=== PATIENT | female | born 2000 | race Caucasian/White ===

== ENCOUNTER 2018-12-17 08:21 | Emergency (ER) | payer BC ==
[2018-12-17] MEDS ORDERED: ONDANSETRON HCL IV 4 MG/2 ML VIAL IV ONE (08:36)
[2018-12-17] MEDS ORDERED: KETOROLAC 30 MG/ML VIAL IVP ONE (08:36)
[2018-12-17] MEDS ORDERED: 0.9 % SODIUM CHLORIDE 1,000 ML BAG IV ONE (08:36)
--- NOTE | 2018-12-17 08:36 | Emergency Department Record ---
History of Present Illness - General Chief Complaint: Dizziness Stated Complaint: DIZZY/ LOW BP Time Seen by Provider: 12/17/18 08:36 Source: Patient, RN notes reviewed - History of Present Illness Initial Comments: right upper quad abdominal pain and it started 2 days ago and with vomiting, nausea and no diarrhea and no URI symptoms slight cough and no dysuria and she was seen in [facility] ED yesterday with blood and urine test and not preg per patient and given morphine which helped the pain and her BP was low last night and this am 90/60 and she was dizzy and she came to ED for reevaluation. She said initially it felt like a pulled muscle and she doesn't recall any injuries. - Related Data Previous Rx's Medication Instructions Recorded Omeprazole 20 mg PO DAILY #30 12/17/18 Allergies Allergy/AdvReac Type Severity Reaction Status Date / Time No Known Drug Allergies Allergy Verified 12/17/18 08:26 Review of Systems Reviewed: No additional complaints except as noted below Constitutional: Reports: As per HPI. Denies: Chills, Fever, Malaise, Night sweats, Weakness, Weight change Eyes: Reports: As per HPI. Denies: Eye discharge, Eye pain, Photophobia, Vision change ENT: Reports: As per HPI. Denies: Congestion, Dental pain, Ear pain, Epistaxis, Hearing loss, Throat pain Respiratory: Reports: As per HPI. Denies: Cough, Dyspnea, Hemoptysis, Stridor, Wheezes Cardiovascular: Reports: As per HPI. Denies: Arrhythmia, Chest pain, Dyspnea on exertion, Edema, Murmurs, Orthopnea, Palpitations, Paroxysmal nocturnal dyspnea, Rheumatic Fever, Syncope Endocrine: Reports: As per HPI. Denies: Fatigue, Heat or cold intolerance, Polydipsia, Polyuria Gastrointestinal: Reports: As per HPI, Abdominal pain, Nausea. Denies: Constipation, Diarrhea, Hematemesis, Hematochezia, Melena, Vomiting Genitourinary: Reports: As per HPI. Denies: Abnormal menses, Discharge, Dyspareunia, Dysuria, Frequency, Hematuria, Incontinence, Retention, Urgency Musculoskeletal: Reports: As per HPI. Denies: Arthralgia, Back pain, Gout, Joint swelling, Myalgia, Neck pain Skin: Reports: As per HPI. Denies: Bruising, Change in color, Change in hair/nails, Lesions, Pruritus, Rash Neurological: Reports: As per HPI. Denies: Abnormal gait, Confusion, Headache, Numbness, Paresthesias, Seizure, Tingling, Tremors, Vertigo, Weakness Psychiatric: Reports: As per HPI. Denies: Anxiety, Auditory hallucinations, Depression, Homicidal thoughts, Suicidal thoughts, Visual hallucinations Hematological/Lymphatic: Reports: As per HPI. Denies: Anemia, Blood Clots, Easy bleeding, Easy bruising, Swollen glands Physical Exam - General General Appearance: Alert, Oriented x3, Cooperative, No acute distress - Head Head exam: Normal inspection - Eye Eye exam: Normal appearance, PERRL Pupils: Normal accommodation - ENT ENT exam: Normal exam, Mucous membranes moist, Normal external ear exam, Normal orophraynx, TM's normal bilaterally Ear exam: Normal external inspection. negative: External canal tenderness Nasal Exam: Normal inspection. negative: Discharge, Sinus tenderness Mouth exam: Normal external inspection, Tongue normal Teeth exam: Normal inspection. negative: Dental caries Throat exam: Normal inspection. negative: Tonsillar erythema, Tonsillar exudate - Neck Neck exam: Normal inspection, Full ROM. negative: Tenderness - Respiratory Respiratory exam: Normal lung sounds bilaterally. negative: Respiratory distress - Cardiovascular Cardiovascular Exam: Regular rate, Normal rhythm, Normal heart sounds - GI/Abdominal GI/Abdominal exam: Soft, Normal bowel sounds, Guarding (right upper quad), Tenderness (right upper quad pain and left lower quad discomfort on palpation but the severe pain is right upper quad) - Rectal Rectal exam: Deferred - exam: Deferred - Extremities Extremities exam: Normal inspection, Full ROM, Normal capillary refill. negative: Tenderness - Back Back exam: Reports: Normal inspection, Full ROM. Denies: Muscle spasm, Rash noted, Tenderness - Neurological Neurological exam: Alert, Normal gait, Oriented X3, Reflexes normal - Psychiatric Psychiatric exam: Normal affect, Normal mood - Skin Skin exam: Dry, Intact, Normal color, Warm Course - Reevaluation(s) Reevaluation #1: reviewed ED chart from [facility] and labs through [facility]. 12/17/18 09:22 Reevaluation #2: went into room and patient sleeping and when she wake up she said the pain was still there 12/17/18 10:14 Medical Decision Making - Data Complexity MDM Data: Labs Ordered and/or Reviewed, X-Ray Ordered and/or Reviewed (US of abd essentially negative) - Lab Data Result diagrams: 12/17/18 08:45 12/17/18 08:45 Disposition Clinical Impression: Abdominal pain Qualifiers: Abdominal location: right upper quadrant Qualified Code(s): R10.11 - Right upper quadrant pain Vomiting Qualifiers: Vomiting type: unspecified Vomiting Intractability: non-intractable Nausea presence: with nausea Qualified Code(s): R11.2 - Nausea with vomiting, unspecified Gastritis Qualifiers: Gastritis type: superficial Chronicity: acute Gastritis bleeding: without bleeding Qualified Code(s): K29.00 - Acute gastritis without bleeding Disposition: Home, Self-Care Condition: (1) Good Instructions: Abdominal Pain (ED), Gastritis (ED) Additional Instructions: follow up with family DR in 2 days return if worse tylenol for pain two 325 mg pills three times a day Prescriptions: Omeprazole 20 mg PO DAILY #30 cap.dr Forms: Patient Portal Access Time of Disposition: 13:08 Quality - Quality Measures Quality Measures: N/A - Blood Pressure Screening Does Patient Have Any of the Following: No Blood Pressure Classification: Pre-Hypertensive BP Reading Systolic Measurement: 124 Diastolic Measurement: 80 Screening for High Blood Pressure: < Pre-Hypertensive BP, F/U Documented > [G8950] Pre-Hypertensive Follow-up Interventions: Referral to alternative/primary care provider.
[2018-12-17] MEDS ORDERED: MAGNESIUM HYDROXIDE/AL HYDROX 30 ML, LIDOCAINE VISC 2% 15ML 15 ML PO ONE ×2 (08:48)
[2018-12-17 09:25] LABS: URINE APPEARANCE CLEAR; URINE BILIRUBIN NEGATIVE (NEGATIVE); URINE BLOOD NEGATIVE (NEGATIVE); URINE COLOR YELLOW; URINE GLUCOSE (UA) NEGATIVE (NEGATIVE); URINE KETONE NEGATIVE (NEGATIVE); URINE LEUKOCYTE ESTERASE NEGATIVE (NEGATIVE); URINE NITRITE NEGATIVE (NEGATIVE); URINE PROTEIN NEGATIVE (NEGATIVE); URINE UROBILINOGEN 0.2 E.U./dL (0.20 - 1.00)
[2018-12-17 09:28] LABS: HCG,QUALITATIVE URINE NEGATIVE (NEGATIVE)
[2018-12-17 09:36] LABS: AMPHETAMINE SCREEN URINE NOT DETECTED; BARBITURATE SCREEN URINE NOT DETECTED; BENZODIAZEPINE SCREEN URINE NOT DETECTED; COCAINE SCREEN URINE NOT DETECTED; METHADONE SCREEN URINE NOT DETECTED; METHAMPHETAMINE SCREEN NOT DETECTED; OPIATE SCREEN URINE DETECTED; OXYCODONE SCREEN URINE NOT DETECTED; PHENCYCLIDINE SCREEN URINE NOT DETECTED; PROPOXYPHENE SCREEN URINE NOT DETECTED; THC SCREEN URINE DETECTED; TRICYCLIC ANTIDEPRESSANT SCRN NOT DETECTED
[2018-12-17 09:55] LABS: ABSOLUTE NEUTROPHIL COUNT 2.86; BASO % 0.4 % (0-6); EOS % 3.5 % (0-6); GRAN % 56.1 % (47-80); HEMATOCRIT 41.3 % (35.0-47.0); HEMOGLOBIN 13.9 gm/dl (11.6-16.0); MEAN CELL VOLUME 91.8 fl (81-97); MEAN CORPUSCULAR HEMOGLOBIN 30.9 pg (27-33); MEAN CORPUSCULAR HGB CONC 33.7 g/dl (32-36); MEAN PLATELET VOLUME 11.5 fl (7.4-10.4); PLATELET COUNT 123 K/uL (130-400); RED CELL DISTRIBUTION WIDTH 13.6 % (11.5-14.5); WHITE BLOOD COUNT W/O DIFF 5.1 K/uL (4.2-12.2)
[2018-12-17 10:05] LABS: BLOOD UREA NITROGEN 7 mg/dL (6-20); CREATININE 0.3 mg/dL (0.5-0.9); EST GLOMERULAR FILTRATION RATE > 60 mL/min
[2018-12-17 10:06] LABS: LIPASE 21 U/L (13-60); TOTAL PROTEIN 6.6 g/dL (6.6-8.7)
[2018-12-17 10:08] LABS: GLUCOSE,RANDOM 87 mg/dL (74-109)
[2018-12-17 10:10] LABS: ALBUMIN 4.3 g/dL (4.0-5.0); ALT/SGPT 9 U/L (<33); AST/SGOT 17 U/L (10.0-35.0); BILIRUBIN,DIRECT 0.2 mg/dL (0-0.3)
[2018-12-17 10:11] LABS: ALKALINE PHOSPHATASE 59 U/L (35-104)
--- NOTE | 2018-12-17 13:51 | Emergency Department Record ---
History of Present Illness - General Chief Complaint: Dizziness Stated Complaint: DIZZY/ LOW BP Time Seen by Provider: 12/17/18 08:36 Source: Patient, RN notes reviewed Mode of Arrival: Wheelchair - History of Present Illness Onset/Timin -: Days(s) Timing: Constant Description: Lightheadedness History of Same: No History of Trauma: No Severity: Moderate Improves With: Nothing Worsens With: Nothing Associated Symptoms: Cough - Jacki Coma Scale Eye Response: (4) Open spontaneously Motor Response: (6) Obeys commands Verbal Response: (5) Oriented [place] Total: 15 - Related Data Previous Rx's Medication Instructions Recorded Dicyclomine HCl [Bentyl] 10 mg PO Q8H #30 cap 12/17/18 Omeprazole 20 mg PO DAILY #30 cap. 12/17/18 Allergies Allergy/AdvReac Type Severity Reaction Status Date / Time No Known Drug Allergies Allergy Verified 12/17/18 08:26 Travel Screening - Travel/Exposure Within Last 30 Days Have you traveled within the last 30 days?: No - Travel/Exposure Within Last Year Have you traveled outside the [place] in the last year?: Yes Location Detail:: [place] - Additonal Travel Details Have you been exposed to anyone with a communicable illness?: No - Travel Symptoms Symptom Screening: None Review of Systems Constitutional: Reports: As per HPI. Denies: Chills, Fever, Malaise, Night sweats, Weakness, Weight change Eyes: Reports: As per HPI. Denies: Eye discharge, Eye pain, Photophobia, Vision change ENT: Reports: As per HPI. Denies: Congestion, Dental pain, Ear pain, Epistaxis, Hearing loss, Throat pain Respiratory: Reports: As per HPI. Denies: Cough, Dyspnea, Hemoptysis, Stridor, Wheezes Cardiovascular: Reports: As per HPI. Denies: Arrhythmia, Chest pain, Dyspnea on exertion, Edema, Murmurs, Orthopnea, Palpitations, Paroxysmal nocturnal dyspnea, Rheumatic Fever, Syncope Endocrine: Reports: As per HPI. Denies: Fatigue, Heat or cold intolerance, Polydipsia, Polyuria Gastrointestinal: Reports: As per HPI, Abdominal pain, Nausea. Denies: Constipation, Diarrhea, Hematemesis, Hematochezia, Melena, Vomiting Genitourinary: Reports: As per HPI. Denies: Abnormal menses, Discharge, Dyspareunia, Dysuria, Frequency, Hematuria, Incontinence, Retention, Urgency Musculoskeletal: Reports: As per HPI. Denies: Arthralgia, Back pain, Gout, Joint swelling, Myalgia, Neck pain Skin: Reports: As per HPI. Denies: Bruising, Change in color, Change in hair/nails, Lesions, Pruritus, Rash Neurological: Reports: As per HPI. Denies: Abnormal gait, Confusion, Headache, Numbness, Paresthesias, Seizure, Tingling, Tremors, Vertigo, Weakness Psychiatric: Reports: As per HPI. Denies: Anxiety, Auditory hallucinations, Depression, Homicidal thoughts, Suicidal thoughts, Visual hallucinations Hematological/Lymphatic: Reports: As per HPI. Denies: Anemia, Blood Clots, Easy bleeding, Easy bruising, Swollen glands Past Medical History - SOCIAL HISTORY Smoking Status: Never smoker Alcohol Use: Occasional Drug Use: Heavy Drug Use Detail:: Marijuana - RESPIRATORY Hx Respiratory Disorders: No - CARDIOVASCULAR Hx Cardio Disorders: No - NEURO Hx Neuro Disorders: No - GI Hx GI Disorders: No - Hx Genitourinary Disorders: No - ENDOCRINE Hx Endocrine Disorders: No - MUSCULOSKELETAL Hx Musculoskeletal Disorders: Yes Comment:: knee - PSYCH Hx Psych Problems: No - HEMATOLOGY/ONCOLOGY Hx Hematology/Oncology Disorders: No Family Medical History Any Significant Family History?: Yes Hx Alcohol Use: Father Hx Cancer: Mother, Grandparents Hx Heart Disease: Grandparents Hx HTN: Mother Hx Kidney Disease: Mother Hx Stroke: Grandparents Course Vital Signs 12/17/18 12/17/18 12/17/18 08:27 09:45 11:32 Temperature 98.2 F Pulse Rate 90 Pulse Rate [ 86 63 Right] Respiratory 20 20 20 Rate Blood Pressure 124/80 Blood Pressure 136/74 128/66 [Left Arm] Pulse Ox 98 100 100 12/17/18 12:45 Temperature Pulse Rate Pulse Rate [ 87 Right] Respiratory 20 Rate Blood Pressure Blood Pressure 122/57 [Left Arm] Pulse Ox 99 Medical Decision Making - Lab Data Result diagrams: 12/17/18 08:45 12/17/18 08:45 Lab Results 12/17/18 12/17/18 12/17/18 Range/Units 08:45 08:45 09:00 WBC 5.1 (4.2-12.2) K/uL RBC 4.50 (3.80-5.40) M/uL Hgb 13.9 (11.6-16.0) gm/dl Hct 41.3 (35.0-47.0) % MCV 91.8 (81-97) fl MCH 30.9 (27-33) pg MCHC 33.7 (32-36) g/dl RDW 13.6 (11.5-14.5) % Plt Count 123 L (130-400) K/uL MPV 11.5 H (7.4-10.4) fl Gran % 56.1 (47-80) % Lymphocytes % 31.0 (16-45) % Monocytes % 9.0 (0-9) % Eosinophils % 3.5 (0-6) % Basophils % 0.4 (0-6) % Absolute Neutrophils 2.86 Sodium 142 (136-145) mmol/L Potassium 3.9 (3.4-4.5) mmol/L Chloride 109 H (98-107) mmol/L Carbon Dioxide 19.0 L (22-29) mmol/L Anion Gap 14.0 (7-16) BUN 7 (6-20) mg/dL Creatinine 0.3 L (0.5-0.9) mg/dL Estimated GFR > 60 mL/min Random Glucose 87 (74-109) mg/dL Calcium 8.7 (8.6-10.0) mg/dL Total Bilirubin 1.20 H (0.2-1.0) mg/dL Direct Bilirubin 0.2 (0-0.3) mg/dL AST 17 (10.0-35.0) U/L ALT 9 (<33) U/L Alkaline Phosphatase 59 (35-104) U/L Total Protein 6.6 (6.6-8.7) g/dL Albumin 4.3 (4.0-5.0) g/dL Lipase 21 (13-60) U/L Urine Color Urine Appearance Urine pH (5.0-8.0) Ur Specific [place] (1.002-1.030) Urine Protein (NEGATIVE) Urine Glucose (UA) (NEGATIVE) Urine Ketones (NEGATIVE) Urine Blood (NEGATIVE) Urine Nitrite (NEGATIVE) Urine Bilirubin (NEGATIVE) Urine Urobilinogen (0.20 - 1.00) E.U./dL Ur Leukocyte Esterase (NEGATIVE) Urine HCG, Qual (NEGATIVE) Urine Opiates Screen Detected Ur Oxycodone Screen Not detected Urine Methadone Screen Not detected Ur Propoxyphene Screen Not detected Ur Barbituates Screen Not detected Ur Tricyclics Screen Not detected Ur Phencyclidine Scrn Not detected Ur Amphetamine Screen Not detected U Methamphetamines Scrn Not detected U Benzodiazepines Scrn Not detected Urine Cocaine Screen Not detected Urine Cannabis Screen Detected 12/17/18 Range/Units 09:20 WBC (4.2-12.2) K/uL RBC (3.80-5.40) M/uL Hgb (11.6-16.0) gm/dl Hct (35.0-47.0) % MCV (81-97) fl MCH (27-33) pg MCHC (32-36) g/dl RDW (11.5-14.5) % Plt Count (130-400) K/uL MPV (7.4-10.4) fl Gran % (47-80) % Lymphocytes % (16-45) % Monocytes % (0-9) % Eosinophils % (0-6) % Basophils % (0-6) % Absolute Neutrophils Sodium (136-145) mmol/L Potassium (3.4-4.5) mmol/L Chloride (98-107) mmol/L Carbon Dioxide (22-29) mmol/L Anion Gap (7-16) BUN (6-20) mg/dL Creatinine (0.5-0.9) mg/dL Estimated GFR mL/min Random Glucose (74-109) mg/dL Calcium (8.6-10.0) mg/dL Total Bilirubin (0.2-1.0) mg/dL Direct Bilirubin (0-0.3) mg/dL AST (10.0-35.0) U/L ALT (<33) U/L Alkaline Phosphatase (35-104) U/L Total Protein (6.6-8.7) g/dL Albumin (4.0-5.0) g/dL Lipase (13-60) U/L Urine Color Yellow Urine Appearance Clear Urine pH 6.0 (5.0-8.0) Ur Specific [place] 1.020 (1.002-1.030) Urine Protein Negative (NEGATIVE) Urine Glucose (UA) Negative (NEGATIVE) Urine Ketones Negative (NEGATIVE) Urine Blood Negative (NEGATIVE) Urine Nitrite Negative (NEGATIVE) Urine Bilirubin Negative (NEGATIVE) Urine Urobilinogen 0.2 (0.20 - 1.00) E.U./dL Ur Leukocyte Esterase Negative (NEGATIVE) Urine HCG, Qual Negative (NEGATIVE) Urine Opiates Screen Ur Oxycodone Screen Urine Methadone Screen Ur Propoxyphene Screen Ur Barbituates Screen Ur Tricyclics Screen Ur Phencyclidine Scrn Ur Amphetamine Screen U Methamphetamines Scrn U Benzodiazepines Scrn Urine Cocaine Screen Urine Cannabis Screen Disposition Clinical Impression: Abdominal pain Qualifiers: Abdominal location: right upper quadrant Qualified Code(s): R10.11 - Right upper quadrant pain Vomiting Qualifiers: Vomiting type: unspecified Vomiting Intractability: non-intractable Nausea presence: with nausea Qualified Code(s): R11.2 - Nausea with vomiting, unspecified Gastritis Qualifiers: Gastritis type: superficial Chronicity: acute Gastritis bleeding: without bleeding Qualified Code(s): K29.00 - Acute gastritis without bleeding Disposition: Home, Self-Care Condition: (1) Good Instructions: Gastritis (ED), Abdominal Pain (ED) Additional Instructions: follow up with family DR in 2 days return if worse tylenol for pain two 325 mg pills three times a day Prescriptions: Dicyclomine HCl [Bentyl] 10 mg PO Q8H #30 cap Omeprazole 20 mg PO DAILY #30 cap.dr Forms: Patient Portal Access Time of Disposition: 13:50 Quality - Quality Measures Quality Measures: N/A - Blood Pressure Screening Does Patient Have Any of the Following: No Blood Pressure Classification: Pre-Hypertensive BP Reading Systolic Measurement: 124 Diastolic Measurement: 80 Screening for High Blood Pressure: < Pre-Hypertensive BP, F/U Documented > [G8950] Pre-Hypertensive Follow-up Interventions: Referral to alternative/primary care provider.
[2018-12-17] MEDS ORDERED: LORAZEPAM 0.5 MG TABLET PO ONE (14:31)
[2018-12-17] MEDS ORDERED: PANTOPRAZOLE SODIUM 40 MG TABLET PO ONE (14:31)
[2018-12-17] MEDS ORDERED: DICYCLOMINE HCL 10 MG CAPSULE PO ONE (14:31)
--- NOTE | 2018-12-17 14:53 | Emergency Department Record ---
History of Present Illness - General Chief Complaint: Dizziness Stated Complaint: DIZZY/ LOW BP Time Seen by Provider: 12/17/18 08:36 Source: Patient, RN notes reviewed Mode of Arrival: Wheelchair - History of Present Illness Onset/Timin -: Days(s) Timing: Constant Description: Lightheadedness History of Same: No History of Trauma: No Severity: Moderate Improves With: Nothing Worsens With: Nothing Associated Symptoms: Cough - Jacki Coma Scale Eye Response: (4) Open spontaneously Motor Response: (6) Obeys commands Verbal Response: (5) Oriented [place] Total: 15 - Related Data Previous Rx's Medication Instructions Recorded Dicyclomine HCl [Bentyl] 10 mg PO Q8H #30 cap 12/17/18 Omeprazole 20 mg PO DAILY #30 cap. 12/17/18 Allergies Allergy/AdvReac Type Severity Reaction Status Date / Time No Known Drug Allergies Allergy Verified 12/17/18 08:26 Travel Screening - Travel/Exposure Within Last 30 Days Have you traveled within the last 30 days?: No - Travel/Exposure Within Last Year Have you traveled outside the [place] in the last year?: Yes Location Detail:: [place] - Additonal Travel Details Have you been exposed to anyone with a communicable illness?: No - Travel Symptoms Symptom Screening: None Review of Systems Constitutional: Reports: As per HPI. Denies: Chills, Fever, Malaise, Night sweats, Weakness, Weight change Eyes: Reports: As per HPI. Denies: Eye discharge, Eye pain, Photophobia, Vision change ENT: Reports: As per HPI. Denies: Congestion, Dental pain, Ear pain, Epistaxis, Hearing loss, Throat pain Respiratory: Reports: As per HPI. Denies: Cough, Dyspnea, Hemoptysis, Stridor, Wheezes Cardiovascular: Reports: As per HPI. Denies: Arrhythmia, Chest pain, Dyspnea on exertion, Edema, Murmurs, Orthopnea, Palpitations, Paroxysmal nocturnal dyspnea, Rheumatic Fever, Syncope Endocrine: Reports: As per HPI. Denies: Fatigue, Heat or cold intolerance, Polydipsia, Polyuria Gastrointestinal: Reports: As per HPI, Abdominal pain, Nausea. Denies: Constipation, Diarrhea, Hematemesis, Hematochezia, Melena, Vomiting Genitourinary: Reports: As per HPI. Denies: Abnormal menses, Discharge, Dyspareunia, Dysuria, Frequency, Hematuria, Incontinence, Retention, Urgency Musculoskeletal: Reports: As per HPI. Denies: Arthralgia, Back pain, Gout, Joint swelling, Myalgia, Neck pain Skin: Reports: As per HPI. Denies: Bruising, Change in color, Change in hair/nails, Lesions, Pruritus, Rash Neurological: Reports: As per HPI. Denies: Abnormal gait, Confusion, Headache, Numbness, Paresthesias, Seizure, Tingling, Tremors, Vertigo, Weakness Psychiatric: Reports: As per HPI. Denies: Anxiety, Auditory hallucinations, Depression, Homicidal thoughts, Suicidal thoughts, Visual hallucinations Hematological/Lymphatic: Reports: As per HPI. Denies: Anemia, Blood Clots, Easy bleeding, Easy bruising, Swollen glands Past Medical History - SOCIAL HISTORY Smoking Status: Never smoker Alcohol Use: Occasional Drug Use: Heavy Drug Use Detail:: Marijuana - RESPIRATORY Hx Respiratory Disorders: No - CARDIOVASCULAR Hx Cardio Disorders: No - NEURO Hx Neuro Disorders: No - GI Hx GI Disorders: No - Hx Genitourinary Disorders: No - ENDOCRINE Hx Endocrine Disorders: No - MUSCULOSKELETAL Hx Musculoskeletal Disorders: Yes Comment:: knee - PSYCH Hx Psych Problems: No - HEMATOLOGY/ONCOLOGY Hx Hematology/Oncology Disorders: No Family Medical History Any Significant Family History?: Yes Hx Alcohol Use: Father Hx Cancer: Mother, Grandparents Hx Heart Disease: Grandparents Hx HTN: Mother Hx Kidney Disease: Mother Hx Stroke: Grandparents Course Vital Signs 12/17/18 12/17/18 12/17/18 08:27 09:45 11:32 Temperature 98.2 F Pulse Rate 90 Pulse Rate [ 86 63 Right] Respiratory 20 20 20 Rate Blood Pressure 124/80 Blood Pressure 136/74 128/66 [Left Arm] Pulse Ox 98 100 100 12/17/18 12/17/18 12:45 13:49 Temperature Pulse Rate Pulse Rate [ 87 92 H Right] Respiratory 20 21 Rate Blood Pressure Blood Pressure 122/57 126/74 [Left Arm] Pulse Ox 99 100 - Reevaluation(s) Reevaluation #1: listening to the dictaphone she has sludge in her GB and informed the patient and mom about this finding and will set up a consult with Dr Hameed 12/17/18 14:47 Medical Decision Making - Data Complexity MDM Data: X-Ray Ordered and/or Reviewed (sludge in the Gall bladder) - Lab Data Result diagrams: 12/17/18 08:45 12/17/18 08:45 Lab Results 12/17/18 12/17/18 12/17/18 Range/Units 08:45 08:45 09:00 WBC 5.1 (4.2-12.2) K/uL RBC 4.50 (3.80-5.40) M/uL Hgb 13.9 (11.6-16.0) gm/dl Hct 41.3 (35.0-47.0) % MCV 91.8 (81-97) fl MCH 30.9 (27-33) pg MCHC 33.7 (32-36) g/dl RDW 13.6 (11.5-14.5) % Plt Count 123 L (130-400) K/uL MPV 11.5 H (7.4-10.4) fl Gran % 56.1 (47-80) % Lymphocytes % 31.0 (16-45) % Monocytes % 9.0 (0-9) % Eosinophils % 3.5 (0-6) % Basophils % 0.4 (0-6) % Absolute Neutrophils 2.86 Sodium 142 (136-145) mmol/L Potassium 3.9 (3.4-4.5) mmol/L Chloride 109 H (98-107) mmol/L Carbon Dioxide 19.0 L (22-29) mmol/L Anion Gap 14.0 (7-16) BUN 7 (6-20) mg/dL Creatinine 0.3 L (0.5-0.9) mg/dL Estimated GFR > 60 mL/min Random Glucose 87 (74-109) mg/dL Calcium 8.7 (8.6-10.0) mg/dL Total Bilirubin 1.20 H (0.2-1.0) mg/dL Direct Bilirubin 0.2 (0-0.3) mg/dL AST 17 (10.0-35.0) U/L ALT 9 (<33) U/L Alkaline Phosphatase 59 (35-104) U/L Total Protein 6.6 (6.6-8.7) g/dL Albumin 4.3 (4.0-5.0) g/dL Lipase 21 (13-60) U/L Urine Color Urine Appearance Urine pH (5.0-8.0) Ur Specific [place] (1.002-1.030) Urine Protein (NEGATIVE) Urine Glucose (UA) (NEGATIVE) Urine Ketones (NEGATIVE) Urine Blood (NEGATIVE) Urine Nitrite (NEGATIVE) Urine Bilirubin (NEGATIVE) Urine Urobilinogen (0.20 - 1.00) E.U./dL Ur Leukocyte Esterase (NEGATIVE) Urine HCG, Qual (NEGATIVE) Urine Opiates Screen Detected Ur Oxycodone Screen Not detected Urine Methadone Screen Not detected Ur Propoxyphene Screen Not detected Ur Barbituates Screen Not detected Ur Tricyclics Screen Not detected Ur Phencyclidine Scrn Not detected Ur Amphetamine Screen Not detected U Methamphetamines Scrn Not detected U Benzodiazepines Scrn Not detected Urine Cocaine Screen Not detected Urine Cannabis Screen Detected 12/17/18 Range/Units 09:20 WBC (4.2-12.2) K/uL RBC (3.80-5.40) M/uL Hgb (11.6-16.0) gm/dl Hct (35.0-47.0) % MCV (81-97) fl MCH (27-33) pg MCHC (32-36) g/dl RDW (11.5-14.5) % Plt Count (130-400) K/uL MPV (7.4-10.4) fl Gran % (47-80) % Lymphocytes % (16-45) % Monocytes % (0-9) % Eosinophils % (0-6) % Basophils % (0-6) % Absolute Neutrophils Sodium (136-145) mmol/L Potassium (3.4-4.5) mmol/L Chloride (98-107) mmol/L Carbon Dioxide (22-29) mmol/L Anion Gap (7-16) BUN (6-20) mg/dL Creatinine (0.5-0.9) mg/dL Estimated GFR mL/min Random Glucose (74-109) mg/dL Calcium (8.6-10.0) mg/dL Total Bilirubin (0.2-1.0) mg/dL Direct Bilirubin (0-0.3) mg/dL AST (10.0-35.0) U/L ALT (<33) U/L Alkaline Phosphatase (35-104) U/L Total Protein (6.6-8.7) g/dL Albumin (4.0-5.0) g/dL Lipase (13-60) U/L Urine Color Yellow Urine Appearance Clear Urine pH 6.0 (5.0-8.0) Ur Specific [place] 1.020 (1.002-1.030) Urine Protein Negative (NEGATIVE) Urine Glucose (UA) Negative (NEGATIVE) Urine Ketones Negative (NEGATIVE) Urine Blood Negative (NEGATIVE) Urine Nitrite Negative (NEGATIVE) Urine Bilirubin Negative (NEGATIVE) Urine Urobilinogen 0.2 (0.20 - 1.00) E.U./dL Ur Leukocyte Esterase Negative (NEGATIVE) Urine HCG, Qual Negative (NEGATIVE) Urine Opiates Screen Ur Oxycodone Screen Urine Methadone Screen Ur Propoxyphene Screen Ur Barbituates Screen Ur Tricyclics Screen Ur Phencyclidine Scrn Ur Amphetamine Screen U Methamphetamines Scrn U Benzodiazepines Scrn Urine Cocaine Screen Urine Cannabis Screen Disposition Clinical Impression: Gall bladder disease Abdominal pain Qualifiers: Abdominal location: right upper quadrant Qualified Code(s): R10.11 - Right upper quadrant pain Vomiting Qualifiers: Vomiting type: unspecified Vomiting Intractability: non-intractable Nausea presence: with nausea Qualified Code(s): R11.2 - Nausea with vomiting, unspecified Gastritis Qualifiers: Gastritis type: superficial Chronicity: acute Gastritis bleeding: without bleeding Qualified Code(s): K29.00 - Acute gastritis without bleeding Disposition: Home, Self-Care Condition: (1) Good Instructions: Gastritis (ED), Abdominal Pain (ED), Biliary Colic (ED) Additional Instructions: follow up with family DR in 2 days return if worse tylenol for pain two 325 mg pills three times a day Prescriptions: Dicyclomine HCl [Bentyl] 10 mg PO Q8H #30 cap Omeprazole 20 mg PO DAILY #30 cap.dr Forms: Patient Portal Access Time of Disposition: 14:51 Quality - Quality Measures Quality Measures: N/A - Blood Pressure Screening Does Patient Have Any of the Following: No Blood Pressure Classification: Pre-Hypertensive BP Reading Systolic Measurement: 124 Diastolic Measurement: 80 Screening for High Blood Pressure: < Pre-Hypertensive BP, F/U Documented > [G8 950] Pre-Hypertensive Follow-up Interventions: Referral to alternative/primary care provider.
--- NOTE | 2018-12-18 10:19 | ULTRASOUND REPORT ---
EXAM: ULTRASOUND OF THE ABDOMEN, COMPLETE HISTORY: NAUSEA, VOMITING, RIGHT UPPER QUADRANT PAIN. TECHNIQUE: Routine scanning of the abdomen was performed. FINDINGS: The liver is normal in size and echogenicity. It measures 14.9 cm in length. No discrete mass. Gallbladder without shadowing stones. No wall thickening or pericholecystic fluid. There does appear to be mild gallbladder sludge. No biliary ductal dilatation. The common duct measures 2 mm in caliber. The visualized portions of the pancreas were normal. The The spleen is normal in size and echogenicity measuring 10.9 cm in length. The right kidney measures 10.5 cm and the left kidney measures 10.1 cm in length. No hydronephrosis or shadowing stones. No suspicious renal mass. The visualized aorta and IVC are normal. IMPRESSION: MILD GALLBLADDER SLUDGE. OTHERWISE, UNREMARKABLE EXAMINATION. JOB NUMBER: [id number] MTDD
== END 2018-12-17 14:42 | disposition home or self-care (01) ==
LOC: ER 08:21
DX: R10.11 Right upper quadrant pain (principal); R11.2 Nausea with vomiting, unspecified; K29.00 Acute gastritis without bleeding; K82.8 Other specified diseases of gallbladder
CPT/HCPCS: 99284 ×2; 96374; 96375; 83690; 85025; 80076; 80048; 81003; 81025; 80305; 76700; J1885; J2405; J7030

== ENCOUNTER 2019-01-05 08:19 | Day surgery (SDC) | payer BC ==
[~2019-01-05 08:19] MED LIST: ACETAMINOPHEN 1,000 MG/100 ML BTL IVPB ONE; FAMOTIDINE 20MG TABLET PO ONE; MECLIZINE 25 MG TABLET PO ONE; METOCLOPRAMIDE 10 MG TABLET PO ONE
[2019-01-05] MEDS ORDERED: ONDANSETRON HCL IV 4 MG/2 ML VIAL IVP ONE ×2 (08:20→11:37)
[2019-01-05] MEDS ORDERED: 0.9 % SODIUM CHLORIDE 10 ML VIAL IVP ONE (08:20)
[2019-01-05] MEDS ORDERED: PROPOFOL 10 MG/ML VIAL IV ONE (08:20)
[2019-01-05] MEDS ORDERED: KETOROLAC 30 MG/ML VIAL IVP ONE (08:20)
[2019-01-05] MEDS ORDERED: DEXAMETHASONE 4 MG/ML 1ML VIAL IVP ONE (08:20)
[2019-01-05] MEDS ORDERED: LIDOCAINE 2% MDV (20MG/ML) 20ML VIAL IV ONE (08:20)
[2019-01-05] MEDS ORDERED: KETAMINE HCL 100MG/1ML VIAL INJ ONE (08:20)
[2019-01-05] MEDS ORDERED: SUGAMMADEX SODIUM 200 MG/2 ML VIAL IV ONE (08:20)
[2019-01-05] MEDS ORDERED: RINGERS SOLUTION,LACTATED 1,000 ML IV ONE ×2 (08:56→11:13)
[2019-01-05] MEDS ORDERED: BUPIVACAINE 0.25% W/EPI MPF 30ML VIAL SQ ONE ×2 (09:48)
[2019-01-05] MEDS ORDERED: PROMETHAZINE HCL 12.5 MG in 0.9 % SODIUM CHLORIDE 100ML 100 ML IVPB ONE (10:44)
[2019-01-05] MEDS ORDERED: FENTANYL PF 100MCG/2ML VIAL IVP ONE ×2 (10:44→10:54)
[2019-01-05] MEDS ORDERED: HYDROCODONE/APAP 5/325MG TABLET PO ONE (12:18)
--- NOTE | 2019-01-06 13:10 | Operative Note ---
DATE OF SURGERY: 01/05/2019 SURGEON: Luis Hameed DO PREOPERATIVE DIAGNOSIS: Symptomatic biliary dyskinesia. POSTOPERATIVE DIAGNOSIS: Symptomatic biliary dyskinesia. OPERATION: Laparoscopic cholecystectomy. INDICATION: The patient is a 18-year-old female who is having ongoing right subcostal postprandial pain. We did discuss cholecystectomy versus medical management. She desired surgical intervention. Risks include but are not limited to bleeding, infection, ductal injury, possible conversion to open, postoperative bile leak, nonresolution of her symptoms. She understood this fully. PROCEDURE: Thereafter, consent was signed and questions answered. She was taken to the operating room and placed in a supine position. General anesthesia was administered per the department of anesthesia. The patient's abdomen was prepped and draped in the usual sterile fashion. The infraumbilical region was anesthetized with a total of 2 mL of 0.25% Sensorcaine with epinephrine. A 2 cm infraumbilical incision was made. This was carried down to the anterior rectus fascia. This was incised. Esther clamps were placed on the fascial edges and brought up into the wound. Stay sutures of 0 Vicryl were placed. Posterior rectus sheath was identified and incised. The peritoneal cavity was entered bluntly. At this time, a 10 mm blunt Jovani port was placed. Adequate pneumoperitoneum was established. Under direct visualization, additional 5 mm epigastric and two 5 mm right subcostal ports were placed. The patient was rotated into reverse Trendelenburg with rotation to left. The gallbladder was identified. It was retracted in a cephalad and lateral direction opening up the angle of [place]. The patient had partly intrahepatic gallbladder. Therefore, I did switch to a dome-down technique where the gallbladder was taken off in an antegrade fashion. This was taken down toward Pee pouch. We did continue our dissection from below meeting up with our anterior dissection. Everything was freed up. We had an excellent critical view of safety. The cystic duct and cystic artery were clearly identified. There was no aberrant anatomy, no posterior ductal structures. Each one was doubly clipped and cut in a standard fashion. Gallbladder was then taken out through the umbilical port. Right upper quadrant was rechecked and found to be hemostatic. No bleeding. No bile leaking. No bowel injury noted. The patient was leveled out. The pneumoperitoneum was released. All ports were removed. The fascia was closed with 0 Vicryl in a imwely-ob-[id number] fashion. The skin at all ports was closed with 4-0 Vicryl. The patient was taken to the recovery room in stable condition. KJ
== END 2019-01-05 12:40 | disposition home or self-care (01) ==
LOC: SUR 08:19
PROVIDERS: ATTEND Surgery
DX: K82.8 Other specified diseases of gallbladder (principal)
CPT/HCPCS: 81025; J1885; J2405; J2550; J3490; J7120

== ENCOUNTER 2019-07-30 15:35 | Emergency (ER) | payer BC ==
[2019-07-30] MEDS ORDERED: 0.9 % SODIUM CHLORIDE 1,000 ML BAG IV ONE ×2 (15:59→17:45)
[2019-07-30] MEDS ORDERED: ACETAMINOPHEN 1,000 MG/100 ML BTL IVPB ONE (16:00)
--- NOTE | 2019-07-30 16:01 | Emergency Department Record ---
History of Present Illness - General Chief Complaint: Syncope Stated Complaint: SINCOPY Time Seen by Provider: 07/30/19 15:51 Source: Patient Mode of Arrival: Ambulatory Limitations: No limitations - History of Present Illness Initial Comments: The patient is here due to possibly passing out at work. She was at work today and has been eating and drinking normally but was not having a good day. She then took one of her mom's Ativan pills and then shortly after felt weak and lightheaded and nauseated. She then went to the bathroom and after about 20-30 minutes her boss went to see how she was doing and she was found on the floor. The patient was awake at that time but sweaty. She states she was in the bathroom and was lightheaded and nauseated and felt warm all over and then passed out possibly. The patient did hit the L side of her head on the floor. She denied any CP, SOB, QUIROZ, or palpitations prior to possibly passing out. She has had similar episodes like this in the past when she was dehydrated. There is no family hx of arrhythmia's or sudden . MD Complaint: [place] faint, Loss of consciousness Onset/Timin -: Hour(s) Prodromal Symptoms: Lightheaded, Other Injuries Sustained Associated with Event: None Current Symptoms: None Context: At rest Treatments Prior to Arrival: None - Jacki Coma Scale Eye Response: (4) Open spontaneously Motor Response: (6) Obeys commands Verbal Response: (5) Oriented Jacki Total: 15 - Related Data Home Medications Medication Instructions Recorded Confirmed Last Taken Trazodone HCl 50 mg PO QHS 07/30/19 07/30/19 Unknown Allergies Allergy/AdvReac Type Severity Reaction Status Date / Time morphine AdvReac HYPOTENSION Verified 12/30/18 10:54 Travel/Exposure Screening - Travel/Exposure Within Last 30 Days Have you traveled within the last 30 days?: No - Travel/Exposure Within Last Year Have you traveled outside the [place] in the last year?: No - Additonal Travel/Exposure Details Have you been exposed to anyone with a communicable illness?: No - Travel Symptoms Symptom Screening: None Review of Systems Constitutional: Denies: Chills, Fever Eyes: Denies: Eye discharge ENT: Denies: Congestion Respiratory: Denies: Cough, Dyspnea Cardiovascular: Denies: Chest pain Endocrine: Denies: Fatigue Gastrointestinal: Denies: Nausea Genitourinary: Denies: Dysuria Musculoskeletal: Denies: Arthralgia Neurological: Reports: Headache. Denies: Abnormal gait, Confusion Past Medical History - SOCIAL HISTORY Smoking Status: Never smoker - RESPIRATORY Hx Respiratory Disorders: No - CARDIOVASCULAR Hx Cardio Disorders: No - NEURO Hx Neuro Disorders: No - GI Hx GI Disorders: No - Hx Genitourinary Disorders: No - ENDOCRINE Hx Endocrine Disorders: No - MUSCULOSKELETAL Hx Musculoskeletal Disorders: Yes Comment:: knee - PSYCH Hx Psych Problems: No - HEMATOLOGY/ONCOLOGY Hx Hematology/Oncology Disorders: No Family Medical History Any Significant Family History?: No Hx Alcohol Use: Father Hx Cancer: Mother, Grandparents Hx Heart Disease: Grandparents Hx HTN: Mother Hx Kidney Disease: Mother Hx Stroke: Grandparents Physical Exam - General General Appearance: Alert, Oriented x3, Cooperative, No acute distress - Head Head exam: Atraumatic, Normocephalic, Normal inspection (There are no signs of any trauma or swelling but there is tenderness to palpation over the L parietal skull area. ) - Eye Eye exam: Normal appearance, PERRL, EOMI. negative: Conjunctival injection - ENT Throat exam: Normal inspection. negative: Tonsillar erythema, Tonsillar exudate - Neck Neck exam: Normal inspection, Full ROM. negative: Lymphadenopathy, Tenderness (There is no Cspine tenderness.) - Respiratory Respiratory exam: Normal lung sounds bilaterally. negative: Respiratory distress - Cardiovascular Cardiovascular Exam: Regular rate, Normal rhythm, Normal heart sounds. negative: Diastolic murmur, Systolic murmur - GI/Abdominal GI/Abdominal exam: Soft, Normal bowel sounds. negative: Tenderness - Extremities Extremities exam: Normal inspection, Full ROM, Normal capillary refill. negative: Tenderness - Neurological Neurological exam: Alert, Normal gait. negative: Abnormal gait, Motor sensory deficit - Psychiatric Psychiatric exam: negative: Anxious Course Vital Signs 07/30/19 15:40 Temperature 98.8 F Pulse Rate 102 H Respiratory 16 Rate Blood Pressure 142/90 Pulse Ox 98 - Reevaluation(s) Reevaluation #1: The patient is doing very well at this time. She is up walking with no dizziness or lightheadness. I did discuss the normal lab tests, CT, and EKG with the patient and the need to drink plenty of fluids. 07/30/19 17:11 Reevaluation #2: The patient is doing better at this time but having mild neck pain with ROM. She is now up walking with no dizziness or lightheadedness or ataxia. She still has a mild QUIROZ but there is no confusion, vomiting, or visual changes. I did discuss the need for a cervical xray due to the patient having mild persistent pain but no tenderness but she is now refusing. I did discuss the risks of refusing which include an undiagnosed cervical fracture, which can lead to persistent pain and paralysis but she continues to refuse. I do feel the patient has proper decision making capacity and is competent to refuse. 07/30/19 18:08 Medical Decision Making - Data Complexity MDM Data: Labs Ordered and/or Reviewed, X-Ray Ordered and/or Reviewed, EKG Ordered and/or Reviewed - Lab Data Result diagrams: 07/30/19 16:05 07/30/19 16:05 - EKG Data -: EKG Interpreted by Me EKG: No Acute Changes (NSR at 98, RsR" pattern. Neg for ischemia or long QT syndrome.) - Radiology Data Radiology results: Report reviewed (Head CT: Neg for any acute changes.) Disposition Disposition: Discharge Clinical Impression: Concussion Qualifiers: Encounter type: initial encounter Loss of consciousness presence/duration: without LOC Qualified Code(s): S06.0X0A - Concussion without loss of consciousness, initial encounter Disposition: Home, Self-Care Condition: (2) Stable Instructions: Syncope (ED) Additional Instructions: Please drink plenty of fluids and please use Tylenol and Motrin for pain. Please see your doctor on Saturday if not better and return to the ER for any worsening symptoms, pain, fever, vomiting or confusion. Forms: Patient Portal Access Time of Disposition: 18:11 Quality - Quality Measures Quality Measures: Blunt Head Trauma (>2yr) - Blunt Head Trauma - Adult Quality Measure: Measure #415: Utilization of CT for Minor Blunt Head Trauma ICD10 Codes Entered: Yes View Details: Yes Was CT ordered: Yes Does Patient Have Any of the Following: Multisystem Trauma [place] Score: Please complete Jacki Coma Scale above Utilization of CT for Minor Blunt Head Trauma: Patient Excluded [G9531] - Blood Pressure Screening View Details: Yes Does Patient Have Any of the Following: No Blood Pressure Classification: Pre-Hypertensive BP Reading Systolic Measurement: 121 Diastolic Measurement: 70 Screening for High Blood Pressure: < Pre-Hypertensive BP, F/U Documented > [G8950] Pre-Hypertensive Follow-up Interventions: Referral to alternative/primary care provider.
[2019-07-30 16:12] LABS: BASO % 0.2 % (0-6); GRAN % 65.1 % (47-80); HEMATOCRIT 44.4 % (35.0-47.0); HEMOGLOBIN 14.7 gm/dl (11.6-16.0); LYMPH % 23.7 % (16-45); MEAN CELL VOLUME 91.4 fl (81-97); MEAN CORPUSCULAR HEMOGLOBIN 30.2 pg (27-33); MEAN CORPUSCULAR HGB CONC 33.1 g/dl (32-36); MEAN PLATELET VOLUME 11.3 fl (7.4-10.4); PLATELET COUNT 241 K/uL (130-400); RED BLOOD COUNT 4.86 M/uL (3.80-5.40); RED CELL DISTRIBUTION WIDTH 13.6 % (11.5-14.5); WHITE BLOOD COUNT W/O DIFF 8.9 K/uL (4.2-12.2)
[2019-07-30 16:20] LABS: AMPHETAMINE SCREEN URINE NOT DETECTED; BARBITURATE SCREEN URINE NOT DETECTED; BENZODIAZEPINE SCREEN URINE NOT DETECTED; COCAINE SCREEN URINE NOT DETECTED; METHADONE SCREEN URINE NOT DETECTED; METHAMPHETAMINE SCREEN NOT DETECTED; OPIATE SCREEN URINE NOT DETECTED; OXYCODONE SCREEN URINE NOT DETECTED; PHENCYCLIDINE SCREEN URINE NOT DETECTED; PROPOXYPHENE SCREEN URINE NOT DETECTED; THC SCREEN URINE DETECTED; TRICYCLIC ANTIDEPRESSANT SCRN NOT DETECTED
[2019-07-30 16:23] LABS: BLOOD UREA NITROGEN 12 mg/dL (6-20); CREATININE 0.5 mg/dL (0.5-0.9); EST GLOMERULAR FILTRATION RATE > 60 mL/min
[2019-07-30 16:24] LABS: TOTAL PROTEIN 7.7 g/dL (6.6-8.7)
[2019-07-30 16:26] LABS: GLUCOSE,RANDOM 82 mg/dL (74-109)
[2019-07-30 16:28] LABS: ALT/SGPT 10 U/L (<33)
[2019-07-30 16:29] LABS: ALB/GLOB RATIO 1.7 (1.1-1.8); ALBUMIN 4.8 g/dL (4.0-5.0); ALKALINE PHOSPHATASE 59 U/L (35-104); AST/SGOT 22 U/L (10.0-35.0)
[2019-07-30] MEDS ORDERED: KETOROLAC 30 MG/ML VIAL IVP ONE (17:02)
--- NOTE | 2019-07-30 17:05 | CT SCAN REPORT ---
EXAMINATION: HEAD WO CONTRAST EXAM DATE: 07/30/2019 5:02 PM TECHNIQUE: Noncontrast axial images were obtained to the brain. INDICATION: Head injury S/P trauma. COMPARISON: None. ENCOUNTER: Not applicable HAND DOMINANCE: Unknown FINDINGS: The brain parenchyma is unremarkable for age. No loss of woodall-white matter differentiation or sulcal effacement to indicate acute infarction. No evidence of intracranial mass. Low-lying cerebellar ton sils. The ventricles, sulci, and subarachnoid spaces are unremarkable for age. The basal cisterns are paten t and there is no midline shift or herniation. No evidence of intracranial hemorrhage. The paranasal sinuses, mastoid air cells, and orbits are unremarkable. The calvarium is intact. IMPRESSION: 1. No CT evidence of intracranial hemorrhage or acute intracranial abnormality. Dictated by: JOSE RENO MD on 07/30/2019 5:03 PM. .
--- NOTE | 2019-07-30 18:24 | Emergency Department Record ---
History of Present Illness - General Chief Complaint: Syncope Stated Complaint: SINCOPY Time Seen by Provider: 07/30/19 15:51 Source: Patient Mode of Arrival: Ambulatory Limitations: No limitations - History of Present Illness MD Complaint: [place] faint, Loss of consciousness Onset/Timin -: Hour(s) Prodromal Symptoms: Lightheaded, Other Injuries Sustained Associated with Event: None Current Symptoms: None Context: At rest Treatments Prior to Arrival: None - Jacki Coma Scale Eye Response: (4) Open spontaneously Motor Response: (6) Obeys commands Verbal Response: (5) Oriented Jacki Total: 15 - Related Data Home Medications Medication Instructions Recorded Confirmed Last Taken Trazodone HCl 50 mg PO QHS 07/30/19 07/30/19 Unknown Allergies Allergy/AdvReac Type Severity Reaction Status Date / Time morphine AdvReac HYPOTENSION Verified 12/30/18 10:54 Travel/Exposure Screening - Travel/Exposure Within Last 30 Days Have you traveled within the last 30 days?: No - Travel/Exposure Within Last Year Have you traveled outside the [place] in the last year?: No - Additonal Travel/Exposure Details Have you been exposed to anyone with a communicable illness?: No - Travel Symptoms Symptom Screening: None Review of Systems Constitutional: Denies: Chills, Fever Eyes: Denies: Eye discharge ENT: Denies: Congestion Respiratory: Denies: Cough, Dyspnea Cardiovascular: Denies: Chest pain Endocrine: Denies: Fatigue Gastrointestinal: Denies: Nausea Genitourinary: Denies: Dysuria Musculoskeletal: Denies: Arthralgia Neurological: Reports: Headache. Denies: Abnormal gait, Confusion Past Medical History - SOCIAL HISTORY Smoking Status: Never smoker - RESPIRATORY Hx Respiratory Disorders: No - CARDIOVASCULAR Hx Cardio Disorders: No - NEURO Hx Neuro Disorders: No - GI Hx GI Disorders: No - Hx Genitourinary Disorders: No - ENDOCRINE Hx Endocrine Disorders: No - MUSCULOSKELETAL Hx Musculoskeletal Disorders: Yes Comment:: knee - PSYCH Hx Psych Problems: No - HEMATOLOGY/ONCOLOGY Hx Hematology/Oncology Disorders: No Family Medical History Any Significant Family History?: No Hx Alcohol Use: Father Hx Cancer: Mother, Grandparents Hx Heart Disease: Grandparents Hx HTN: Mother Hx Kidney Disease: Mother Hx Stroke: Grandparents Physical Exam - General Limitations: No limitations Course Vital Signs 07/30/19 07/30/19 07/30/19 15:40 17:51 18:15 Temperature 98.8 F 98.8 F Pulse Rate 102 H 85 Pulse Rate [ 85 Pulse Ox Probe] Respiratory 16 16 16 Rate Blood Pressure 142/90 121/70 Blood Pressure 121/70 [Left Arm] Pulse Ox 98 96 96 - Reevaluation(s) Reevaluation #1: The patient was up walking without any difficulty at discharge but was complaining of significant pain. She appeared very anxious which she has a long hx of. I did ask mom if there was anything else going on recently which could be triggering her anxiety but she stated no and that the anxiety is a chronic issue. 07/30/19 18:22 Medical Decision Making - Lab Data Result diagrams: 07/30/19 16:05 07/30/19 16:05 Lab Results 07/30/19 07/30/19 07/30/19 Range/Units 16:05 16:05 16:05 WBC 8.9 (4.2-12.2) K/uL RBC 4.86 (3.80-5.40) M/uL Hgb 14.7 (11.6-16.0) gm/dl Hct 44.4 (35.0-47.0) % MCV 91.4 (81-97) fl MCH 30.2 (27-33) pg MCHC 33.1 (32-36) g/dl RDW 13.6 (11.5-14.5) % Plt Count 241 (130-400) K/uL MPV 11.3 H (7.4-10.4) fl Gran % 65.1 (47-80) % Lymphocytes % 23.7 (16-45) % Monocytes % 10.0 H (0-9) % Eosinophils % 1.0 (0-6) % Basophils % 0.2 (0-6) % Absolute Neutrophils 5.80 Sodium 140 (136-145) mmol/L Potassium 3.7 (3.4-4.5) mmol/L Chloride 106 (98-107) mmol/L Carbon Dioxide 20.0 L (22-29) mmol/L Anion Gap 14.0 (7-16) BUN 12 (6-20) mg/dL Creatinine 0.5 (0.5-0.9) mg/dL Estimated GFR > 60 mL/min Random Glucose 82 (74-109) mg/dL Calcium 9.3 (8.6-10.0) mg/dL Total Bilirubin 0.90 (0.2-1.0) mg/dL AST 22 (10.0-35.0) U/L ALT 10 (<33) U/L Alkaline Phosphatase 59 (35-104) U/L Total Protein 7.7 (6.6-8.7) g/dL Albumin 4.8 (4.0-5.0) g/dL Globulin 2.9 (1.4-4.8) gm/dL Albumin/Globulin Ratio 1.7 (1.1-1.8) Serum HCG, Qual Negative (NEGATIVE) Urine Opiates Screen Ur Oxycodone Screen Urine Methadone Screen Ur Propoxyphene Screen Ur Barbituates Screen Ur Tricyclics Screen Ur Phencyclidine Scrn Ur Amphetamine Screen U Methamphetamines Scrn U Benzodiazepines Scrn Urine Cocaine Screen Urine Cannabis Screen 07/30/19 Range/Units 16:05 WBC (4.2-12.2) K/uL RBC (3.80-5.40) M/uL Hgb (11.6-16.0) gm/dl Hct (35.0-47.0) % MCV (81-97) fl MCH (27-33) pg MCHC (32-36) g/dl RDW (11.5-14.5) % Plt Count (130-400) K/uL MPV (7.4-10.4) fl Gran % (47-80) % Lymphocytes % (16-45) % Monocytes % (0-9) % Eosinophils % (0-6) % Basophils % (0-6) % Absolute Neutrophils Sodium (136-145) mmol/L Potassium (3.4-4.5) mmol/L Chloride (98-107) mmol/L Carbon Dioxide (22-29) mmol/L Anion Gap (7-16) BUN (6-20) mg/dL Creatinine (0.5-0.9) mg/dL Estimated GFR mL/min Random Glucose (74-109) mg/dL Calcium (8.6-10.0) mg/dL Total Bilirubin (0.2-1.0) mg/dL AST (10.0-35.0) U/L ALT (<33) U/L Alkaline Phosphatase (35-104) U/L Total Protein (6.6-8.7) g/dL Albumin (4.0-5.0) g/dL Globulin (1.4-4.8) gm/dL Albumin/Globulin Ratio (1.1-1.8) Serum HCG, Qual (NEGATIVE) Urine Opiates Screen Not detected Ur Oxycodone Screen Not detected Urine Methadone Screen Not detected Ur Propoxyphene Screen Not detected Ur Barbituates Screen Not detected Ur Tricyclics Screen Not detected Ur Phencyclidine Scrn Not detected Ur Amphetamine Screen Not detected U Methamphetamines Scrn Not detected U Benzodiazepines Scrn Not detected Urine Cocaine Screen Not detected Urine Cannabis Screen Detected Disposition Clinical Impression: Concussion Qualifiers: Encounter type: initial encounter Loss of consciousness presence/duration: without LOC Qualified Code(s): S06.0X0A - Concussion without loss of consciousness, initial encounter Disposition: Home, Self-Care Condition: (2) Stable Instructions: Syncope (ED) Additional Instructions: Please drink plenty of fluids and please use Tylenol and Motrin for pain. Please see your doctor on Saturday if not better and return to the ER for any worsening symptoms, pain, fever, vomiting or confusion. Forms: Patient Portal Access Quality - Quality Measures Quality Measures: N/A - Blood Pressure Screening View Details: Yes Does Patient Have Any of the Following: No Blood Pressure Classification: Pre-Hypertensive BP Reading Systolic Measurement: 121 Diastolic Measurement: 70 Screening for High Blood Pressure: < Pre-Hypertensive BP, F/U Documented > [G8950] Pre-Hypertensive Follow-up Interventions: Referral to alternative/primary care provider.
== END 2019-07-30 18:17 | disposition home or self-care (01) ==
LOC: ER 15:35
DX: S06.0X0A Concussion without loss of consciousness, initial encounter (principal); M54.2 Cervicalgia; R51 Headache; R11.0 Nausea; R53.1 Weakness; F41.9 Anxiety disorder, unspecified; W18.30XA Fall on same level, unspecified, initial encounter; Y92.89 Other specified places as the place of occurrence of the external cause
CPT/HCPCS: 99284 ×2; 96365; 96375; 96361; 85025; 80053; 84703; 80305; 70450; 93005; J1885; 93010; J7030